=== PATIENT | female | born 1990 | race Caucasian/White ===

== ENCOUNTER 2017-11-20 19:53 | Emergency (ER) | payer MEDICAID ==
[~2017-11-20] VITALS: Ht 167.6 cm; Wt 118.7 kg
[~2017-11-20 19:53] MED LIST: PREN1TAB56 PO
[2017-11-20 20:01] VITALS: BP 141/91
== END 2017-11-20 21:39 | disposition home or self-care (01) ==
LOC: ED 21:10
DX: J20.8 Acute bronchitis due to other specified organisms (principal); J00 Acute nasopharyngitis [common cold]; B97.89 Other viral agents as the cause of diseases classified elsewhere
CPT/HCPCS: 71046; 87081; 87880; 99285

== ENCOUNTER 2021-04-26 10:18 | Emergency (ER) | payer MEDICAID ==
[~2021-04-26] VITALS: Ht 165.1 cm; Wt 123.9 kg
[2021-04-26 10:29] VITALS: BP 152/80
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
--- NOTE | 2021-04-26 11:07 | NUR ---
PT TO US VIA [facility].
[2021-04-26 11:41] LABS: MICROSCOPIC NOT IND
--- NOTE | 2021-04-26 12:45 | NUR ---
ERP AT FOR RECHECK.
--- NOTE | 2021-04-26 13:07 | NUR ---
D/C INSTRUCTIONS, MEDS & F/U APPT RV'WD WITH PT, SHE VERBALIZES UNDERSTANDING. WILL RETURN FOR HCG RECHECK IN 2 DAYS. RX GIVEN X2. PT AMBULATED OUT OF ED WITHOUT DIFFICULTY.
== END 2021-04-26 13:08 | disposition home or self-care (01) ==
LOC: ED 10:50
DX: O20.0 Threatened abortion (principal); R07.89 Other chest pain; Z32.01 Encounter for pregnancy test, result positive; Z3A.10 10 weeks gestation of pregnancy
CPT/HCPCS: 36415; 76801; 81003; 84702; 86901; 99284